=== PATIENT | female | born 1960 | race Caucasian/White ===

== ENCOUNTER 2021-07-17 10:50 | Inpatient (IN) ==
[2021-07-17 11:24] LABS: Basophils # 0.1 10*3/uL (0.0-0.2); Basophils % 0.9 % (0.0-0.8); Eosinophils # 0.6 10*3/uL (0.0-0.87); Eosinophils % 8.6 % (0.00-10.9); Hematocrit 26.4 VOL% (35.7-47.0); Immature Granulocytes % 0.3 %; Immature Granulocytes Absolute 0.02 #; Lymphocytes # 1.6 10*3/uL (1.4-4.0); Lymphocytes % 22.9 % (21.3-54.2); Mean Corpuscular HGB Conc 30.3 GM/DL (32-36); Mean Corpuscular Volume 94.3 FL (87-102); Mean Platelet Volume 10.8 FL (9.6-12.0); Monocytes % 9.9 % (1.7-12.7); Neutrophils % 57.4 % (38.7-73.9); Platelet Count 296 T/CUMM (130-400); Red Cell Distribution Width 15.1 % (9.3-17.3)
[2021-07-17 11:30] LABS: ABG Base Excess 2.1 MMOL/L (-2.5-2.5); ABG HCO3 26.2 MMOL/L (20-26); ABG Oxygen Saturation 91.7 % (95-100); ABG PCO2 42.7 MM HG (35-48); ABG PH 7.408 (7.35-7.45); ABG PO2 65.7 MM HG (80-95); ABG TCO2 25.2 MMOL/L (23-27)
[2021-07-17 12:02] LABS: Albumin 3.2 G/DL (3.4-5.0); Bilirubin,Total 0.5 MG/DL (0.20-1.00); Potassium 3.8 MMOL/L (3.5-5.1); Total Protein 7.7 G/DL (6.4-8.2)
[2021-07-17] MEDS ORDERED: PIPERACILLIN/TAZOBACTAM 3,375 MG in SODIUM CHLORIDE 0.9% 100 ML IV STA ×2 (12:11→13:05)
[2021-07-17] MEDS ORDERED: DEXTROSE 50% 25 GM/50 ML SYRINGE IV ONE (12:41)
[2021-07-17] MEDS ORDERED: DEXTROSE 50% 25 GM/50 ML VIAL IV STA (12:49)
[2021-07-17] MEDS ORDERED: BISACODYL 5 MG TABLET PO PRN (14:05)
[2021-07-17] MEDS ORDERED: ACETAMINOPHEN 325 MG TABLET PO PRN (14:05)
[2021-07-17] MEDS ORDERED: DEXTROSE 50% 25 GM/50 ML VIAL IV PRN (14:05)
[2021-07-17] MEDS ORDERED: guaiFENesin/DM ER 600-30 MG TABLET PO PRN (14:05)
[2021-07-17] MEDS ORDERED: ONDANSETRON 4 MG/2 ML VIAL IV PRN (14:05)
[2021-07-17] MEDS ORDERED: GLUCAGON 1 MG VIAL IM PRN (14:05)
[2021-07-17] MEDS ORDERED: FUROSEMIDE 40 MG/4 ML VIAL IV STA (14:07)
[2021-07-17] MEDS ORDERED: hydrALAZINE 20 MG/1 ML VIAL IV STA (14:13)
[2021-07-17] MEDS: INSULIN LISPRO 100 UNIT/ML SUBCUT SCH ×2 (16:19→21:03)
[2021-07-17] MEDS: ASPIRIN EC 81 MG TABLET PO SCH (16:40)
[2021-07-17] MEDS: VENLAFAXINE XR 37.5 MG CAPSULE PO SCH ×2 (16:42→21:03)
[2021-07-17] MEDS: GABAPENTIN 300 MG CAPSULE PO SCH ×2 (16:42→21:03)
[2021-07-17] MEDS: METOPROLOL SUCCINATE XL 25 MG TABLET PO SCH (16:42)
[2021-07-17] MEDS: LOSARTAN 50 MG TABLET PO SCH (16:42)
[2021-07-17] MEDS: levETIRAcetam 500 MG TABLET PO SCH ×2 (16:42→21:03)
[2021-07-17] MEDS ORDERED: INFLUENZA VIRUS VACCINE 0.5 ML SYRINGE IM ONE (18:28)
[2021-07-17] MEDS: PIPERACILLIN/TAZOBACTAM 3,375 MG in SODIUM CHLORIDE 0.9% 100 ML IV SCH (21:02)
[2021-07-17] MEDS: ATORVASTATIN 80 MG TABLET PO SCH (21:03)
[2021-07-17] MEDS: ENOXAPARIN 40 MG/0.4 ML SYRINGE SUBCUT SCH (21:03)
[2021-07-18] MEDS: PIPERACILLIN/TAZOBACTAM 3,375 MG in SODIUM CHLORIDE 0.9% 100 ML IV SCH ×3 (05:14→21:21)
[2021-07-18 05:37] LABS: Basophils # 0.1 10*3/uL (0.0-0.2); Basophils % 0.8 % (0.0-0.8); Eosinophils # 0.7 10*3/uL (0.0-0.87); Eosinophils % 11.8 % (0.00-10.9); Hematocrit 24.7 VOL% (35.7-47.0); Hemoglobin 7.4 GM/DL (12.0-16.0); Immature Granulocytes % 0.3 %; Immature Granulocytes Absolute 0.02 #; Lymphocytes # 2.1 10*3/uL (1.4-4.0); Lymphocytes % 34.8 % (21.3-54.2); Mean Corpuscular Volume 96.1 FL (87-102); Mean Platelet Volume 11.2 FL (9.6-12.0); Monocytes % 12.1 % (1.7-12.7); Neutrophils % 40.2 % (38.7-73.9); Platelet Count 273 T/CUMM (130-400); Red Blood Count 2.57 MC/CUMM (3.8-5.5); Red Cell Distribution Width 15.3 % (9.3-17.3)
[2021-07-18 06:06] LABS: Calcium 8.4 MG/DL (8.5-10.1); Osmolality,Calculated 282.8 MOS/KG (273-304); Potassium 3.4 MMOL/L (3.5-5.1)
[2021-07-18 06:35] LABS: Eosinophils 15 % (0-10); Lymphocytes 36 % (20-55); Platelet Estimate Normal; Segmented Neutrophils 39 % (50-85); Total Cells Counted 100
[2021-07-18 06:36] LABS: Anisocytosis 1+; Macrocytosis Slight
[2021-07-18] MEDS: INSULIN LISPRO 100 UNIT/ML SUBCUT SCH ×4 (07:48→21:26)
[2021-07-18] MEDS: METOPROLOL SUCCINATE XL 25 MG TABLET PO SCH (08:38)
[2021-07-18] MEDS: levETIRAcetam 500 MG TABLET PO SCH ×2 (08:38→21:21)
[2021-07-18] MEDS: LOSARTAN 50 MG TABLET PO SCH (08:38)
[2021-07-18] MEDS: GABAPENTIN 300 MG CAPSULE PO SCH ×3 (08:38→21:21)
[2021-07-18] MEDS: VENLAFAXINE XR 37.5 MG CAPSULE PO SCH ×2 (08:38→21:21)
[2021-07-18] MEDS: FUROSEMIDE 40 MG/4 ML VIAL IV SCH ×2 (08:39→16:05)
[2021-07-18] MEDS: ASPIRIN EC 81 MG TABLET PO SCH (08:39)
[2021-07-18] MEDS: ATORVASTATIN 80 MG TABLET PO SCH (21:21)
[2021-07-18] MEDS: ENOXAPARIN 40 MG/0.4 ML SYRINGE SUBCUT SCH (21:22)
[2021-07-19] MEDS: PIPERACILLIN/TAZOBACTAM 3,375 MG in SODIUM CHLORIDE 0.9% 100 ML IV SCH ×3 (05:46→21:24)
[2021-07-19] MEDS: GABAPENTIN 300 MG CAPSULE PO SCH ×3 (08:53→21:24)
[2021-07-19] MEDS: ASPIRIN EC 81 MG TABLET PO SCH (08:53)
[2021-07-19] MEDS: METOPROLOL SUCCINATE XL 25 MG TABLET PO SCH (08:53)
[2021-07-19] MEDS: LOSARTAN 50 MG TABLET PO SCH (08:53)
[2021-07-19] MEDS: levETIRAcetam 500 MG TABLET PO SCH ×2 (08:53→21:24)
[2021-07-19] MEDS: INSULIN LISPRO 100 UNIT/ML SUBCUT SCH ×4 (08:53→21:59)
[2021-07-19] MEDS: VENLAFAXINE XR 37.5 MG CAPSULE PO SCH ×2 (08:54→21:24)
[2021-07-19] MEDS: FUROSEMIDE 40 MG/4 ML VIAL IV SCH ×2 (08:54→16:17)
[2021-07-19] MEDS: ATORVASTATIN 80 MG TABLET PO SCH (21:24)
[2021-07-19] MEDS: ENOXAPARIN 40 MG/0.4 ML SYRINGE SUBCUT SCH (21:24)
[2021-07-20] MEDS: PIPERACILLIN/TAZOBACTAM 3,375 MG in SODIUM CHLORIDE 0.9% 100 ML IV SCH ×3 (05:47→20:41)
[2021-07-20 06:43] LABS: Basophils # 0.1 10*3/uL (0.0-0.2); Basophils % 0.8 % (0.0-0.8); Eosinophils % 14.6 % (0.00-10.9); Hematocrit 24.2 VOL% (35.7-47.0); Hemoglobin 7.3 GM/DL (12.0-16.0); Immature Granulocytes % 0.3 %; Immature Granulocytes Absolute 0.02 #; Lymphocytes # 1.6 10*3/uL (1.4-4.0); Lymphocytes % 24.4 % (21.3-54.2); Mean Corpuscular HGB Conc 30.2 GM/DL (32-36); Mean Corpuscular Volume 95.3 FL (87-102); Mean Platelet Volume 11.3 FL (9.6-12.0); Monocytes % 13.1 % (1.7-12.7); Neutrophils % 46.8 % (38.7-73.9); Platelet Count 258 T/CUMM (130-400); Red Blood Count 2.54 MC/CUMM (3.8-5.5); Red Cell Distribution Width 14.7 % (9.3-17.3); White Blood Count 6.6 T/CUMM (4-12)
[2021-07-20 07:03] LABS: Eosinophils 9 % (0-10); Lymphocytes 30 % (20-55); Platelet Estimate Normal; Segmented Neutrophils 53 % (50-85); Total Cells Counted 100
[2021-07-20 07:04] LABS: Anisocytosis 2+
[2021-07-20 07:06] LABS: Helmet Cells Few; Macrocytosis Slight; Poikilocytosis Slight
[2021-07-20 07:12] LABS: Calcium 8.1 MG/DL (8.5-10.1); Osmolality,Calculated 292.5 MOS/KG (273-304)
[2021-07-20 09:42] LABS: Lymphocytes,Pleural Fluid 94 %; Monocytes,Pleural Fluid 2 %; Neutrophils,Pleural Fluid 4 %
[2021-07-20] MEDS: INSULIN LISPRO 100 UNIT/ML SUBCUT SCH ×4 (09:48→20:42)
[2021-07-20 09:49] LABS: RBC,Pleural Fluid 72 T/CUMM
[2021-07-20] MEDS: LOSARTAN 50 MG TABLET PO SCH (09:49)
[2021-07-20] MEDS: GABAPENTIN 300 MG CAPSULE PO SCH ×3 (09:49→20:41)
[2021-07-20] MEDS: METOPROLOL SUCCINATE XL 25 MG TABLET PO SCH (09:49)
[2021-07-20] MEDS: VENLAFAXINE XR 37.5 MG CAPSULE PO SCH ×2 (09:49→20:41)
[2021-07-20] MEDS: ASPIRIN EC 81 MG TABLET PO SCH (09:49)
[2021-07-20] MEDS: levETIRAcetam 500 MG TABLET PO SCH ×2 (09:49→20:41)
[2021-07-20 09:50] LABS: Glucose,Pleural Fluid 327 MG/DL; LDH,Body Fluid 96 U/L; Total Protein,Body Fluid 2.2 G/DL
[2021-07-20] MEDS: FUROSEMIDE 40 MG/4 ML VIAL IV SCH ×2 (09:50→09:55)
[2021-07-20] MEDS ORDERED: INSULIN NPH 100 UNIT/ML SUBCUT SCH (17:00)
[2021-07-20] MEDS: ENOXAPARIN 40 MG/0.4 ML SYRINGE SUBCUT SCH (20:41)
[2021-07-20] MEDS: ATORVASTATIN 80 MG TABLET PO SCH (20:41)
[2021-07-21] MEDS: PIPERACILLIN/TAZOBACTAM 3,375 MG in SODIUM CHLORIDE 0.9% 100 ML IV SCH (05:03)
[2021-07-21 05:49] LABS: Basophils # 0.1 10*3/uL (0.0-0.2); Basophils % 0.7 % (0.0-0.8); Eosinophils # 0.9 10*3/uL (0.0-0.87); Hematocrit 23.7 VOL% (35.7-47.0); Hemoglobin 7.1 GM/DL (12.0-16.0); Immature Granulocytes % 0.1 %; Immature Granulocytes Absolute 0.01 #; Lymphocytes # 2.3 10*3/uL (1.4-4.0); Lymphocytes % 32.8 % (21.3-54.2); Mean Corpuscular Volume 95.2 FL (87-102); Mean Platelet Volume 11.9 FL (9.6-12.0); Monocytes % 11.7 % (1.7-12.7); Neutrophils % 41.7 % (38.7-73.9); Platelet Count 249 T/CUMM (130-400); Red Blood Count 2.49 MC/CUMM (3.8-5.5); Red Cell Distribution Width 14.6 % (9.3-17.3); White Blood Count 6.9 T/CUMM (4-12)
[2021-07-21 06:10] LABS: Calcium 8.1 MG/DL (8.5-10.1); Osmolality,Calculated 288.8 MOS/KG (273-304); Potassium 3.6 MMOL/L (3.5-5.1)
[2021-07-21 06:22] LABS: Eosinophils 11 % (0-10); Hypochromasia 1+; Lymphocytes 30 % (20-55); Segmented Neutrophils 51 % (50-85); Total Cells Counted 100
[2021-07-21 06:23] LABS: Macrocytosis Slight
[2021-07-21 06:24] LABS: Platelet Estimate Normal
[2021-07-21] MEDS ORDERED: INSULIN NPH 100 UNIT/ML SUBCUT SCH (08:00)
[2021-07-21] MEDS: INSULIN LISPRO 100 UNIT/ML SUBCUT SCH ×4 (08:08→22:57)
[2021-07-21] MEDS: VENLAFAXINE XR 37.5 MG CAPSULE PO SCH ×2 (09:04→21:00)
[2021-07-21] MEDS: METOPROLOL SUCCINATE XL 25 MG TABLET PO SCH (09:04)
[2021-07-21] MEDS: ASPIRIN EC 81 MG TABLET PO SCH (09:05)
[2021-07-21] MEDS: LOSARTAN 50 MG TABLET PO SCH (09:05)
[2021-07-21] MEDS: levETIRAcetam 500 MG TABLET PO SCH ×2 (09:06→21:00)
[2021-07-21] MEDS: GABAPENTIN 300 MG CAPSULE PO SCH ×3 (09:06→21:00)
[2021-07-21] MEDS: INSULIN NPH 100 UNIT/ML SUBCUT SCH ×2 (09:07→16:39)
[2021-07-21] MEDS: FUROSEMIDE 40 MG/4 ML VIAL IV SCH (09:10)
[2021-07-21] MEDS: ATORVASTATIN 80 MG TABLET PO SCH (21:00)
[2021-07-21] MEDS: ENOXAPARIN 40 MG/0.4 ML SYRINGE SUBCUT SCH (21:00)
[2021-07-22 05:40] LABS: Basophils # 0.1 10*3/uL (0.0-0.2); Basophils % 0.8 % (0.0-0.8); Eosinophils # 1.1 10*3/uL (0.0-0.87); Hematocrit 23.6 VOL% (35.7-47.0); Hemoglobin 7.3 GM/DL (12.0-16.0); Immature Granulocytes % 0.3 %; Immature Granulocytes Absolute 0.02 #; Lymphocytes # 2.2 10*3/uL (1.4-4.0); Lymphocytes % 27.5 % (21.3-54.2); Mean Corpuscular HGB Conc 30.9 GM/DL (32-36); Mean Corpuscular Volume 95.5 FL (87-102); Mean Platelet Volume 11.4 FL (9.6-12.0); Neutrophils % 45.4 % (38.7-73.9); Platelet Count 257 T/CUMM (130-400); Red Blood Count 2.47 MC/CUMM (3.8-5.5); Red Cell Distribution Width 14.5 % (9.3-17.3); White Blood Count 7.9 T/CUMM (4-12)
[2021-07-22 06:07] LABS: Eosinophils 15 % (0-10); Lymphocytes 22 % (20-55); Macrocytosis Slight; Platelet Estimate Normal; Segmented Neutrophils 56 % (50-85); Total Cells Counted 100
[2021-07-22 06:12] LABS: % Iron Saturation 12.9 % (18-50); Calcium 8.1 MG/DL (8.5-10.1); Ferritin 34.5 ng/mL (8-252); Osmolality,Calculated 292.7 MOS/KG (273-304); Potassium 3.7 MMOL/L (3.5-5.1)
[2021-07-22 06:26] LABS: Folate 5.93 NG/ML (5.38-24.0)
[2021-07-22] MEDS: INSULIN LISPRO 100 UNIT/ML SUBCUT SCH ×4 (08:33→22:10)
[2021-07-22] MEDS: METOPROLOL SUCCINATE XL 25 MG TABLET PO SCH (08:34)
[2021-07-22] MEDS: FUROSEMIDE 40 MG/4 ML VIAL IV SCH ×2 (08:34→10:09)
[2021-07-22] MEDS: INSULIN NPH 100 UNIT/ML SUBCUT SCH ×2 (08:34→16:21)
[2021-07-22] MEDS: levETIRAcetam 500 MG TABLET PO SCH ×2 (08:35→22:10)
[2021-07-22] MEDS: ASPIRIN EC 81 MG TABLET PO SCH (08:35)
[2021-07-22] MEDS: VENLAFAXINE XR 37.5 MG CAPSULE PO SCH ×2 (08:35→22:10)
[2021-07-22] MEDS: LOSARTAN 50 MG TABLET PO SCH (08:35)
[2021-07-22] MEDS: GABAPENTIN 300 MG CAPSULE PO SCH ×3 (08:35→22:10)
[2021-07-22] MEDS ORDERED: INSULIN NPH 100 UNIT/ML SUBCUT ONE (09:15)
[2021-07-22] MEDS: FERROUS SULFATE 325 MG TABLET PO SCH ×2 (09:29→16:21)
[2021-07-22] MEDS: ENOXAPARIN 40 MG/0.4 ML SYRINGE SUBCUT SCH (22:10)
[2021-07-22] MEDS: ATORVASTATIN 80 MG TABLET PO SCH (22:10)
[2021-07-23] MEDS: levETIRAcetam 500 MG TABLET PO SCH (08:48)
[2021-07-23] MEDS: METOPROLOL SUCCINATE XL 25 MG TABLET PO SCH (08:48)
[2021-07-23] MEDS: ASPIRIN EC 81 MG TABLET PO SCH (08:48)
[2021-07-23] MEDS: LOSARTAN 50 MG TABLET PO SCH (08:48)
[2021-07-23] MEDS: GABAPENTIN 300 MG CAPSULE PO SCH ×2 (08:48→16:18)
[2021-07-23] MEDS: VENLAFAXINE XR 37.5 MG CAPSULE PO SCH (08:48)
[2021-07-23] MEDS: FERROUS SULFATE 325 MG TABLET PO SCH (08:48)
[2021-07-23] MEDS: INSULIN LISPRO 100 UNIT/ML SUBCUT SCH ×3 (08:49→16:19)
[2021-07-23] MEDS: FUROSEMIDE 40 MG/4 ML VIAL IV SCH (08:49)
[2021-07-23] MEDS ORDERED: INSULIN NPH 100 UNIT/ML SUBCUT SCH (09:00)
[2021-07-23] MEDS: INSULIN NPH 100 UNIT/ML SUBCUT SCH (10:22)
[2021-07-23 13:07] VITALS: BP 143/58
== END 2021-07-23 16:56 | disposition home health service (06) | DRG 291 ==
LOC: EDBD → EDUNIT# → N.ED 10:50 → SUATTDRO 14:05 → N.EDINP 14:05 → N.3E 15:41
PROVIDERS: ADMIT Internal Medicine; ATTEND Internal Medicine

== ENCOUNTER 2021-07-26 09:24 | Inpatient (IN) ==
[2021-07-26] MEDS ORDERED: SODIUM CHLORIDE 0.9% 1,000 ML IV STA (09:48)
[2021-07-26 10:04] LABS: ABG Base Excess 3.4 MMOL/L (-2.5-2.5); ABG HCO3 27.5 MMOL/L (20-26); ABG Oxygen Saturation 97.8 % (95-100); ABG PCO2 41.9 MM HG (35-48); ABG PH 7.432 (7.35-7.45); ABG PO2 90.4 MM HG (80-95); ABG TCO2 26.4 MMOL/L (23-27); Allen Test Positive
[2021-07-26 10:14] LABS: Basophils # 0.1 10*3/uL (0.0-0.2); Basophils % 0.6 % (0.0-0.8); Eosinophils # 0.6 10*3/uL (0.0-0.87); Eosinophils % 7.8 % (0.00-10.9); Hematocrit 21.4 VOL% (35.7-47.0); Immature Granulocytes % 0.5 %; Immature Granulocytes Absolute 0.04 #; Lymphocytes # 1.7 10*3/uL (1.4-4.0); Lymphocytes % 21.3 % (21.3-54.2); Mean Corpuscular HGB Conc 29.9 GM/DL (32-36); Mean Corpuscular Volume 94.7 FL (87-102); Mean Platelet Volume 11.2 FL (9.6-12.0); Monocytes % 10.5 % (1.7-12.7); Neutrophils % 59.3 % (38.7-73.9); Platelet Count 302 T/CUMM (130-400); Red Blood Count 2.26 MC/CUMM (3.8-5.5); Red Cell Distribution Width 14.8 % (9.3-17.3); White Blood Count 7.7 T/CUMM (4-12)
[2021-07-26 10:16] LABS: Hemoglobin 6.4 GM/DL (12.0-16.0)
[2021-07-26 10:40] LABS: Alanine Aminotransferase 20 U/L (13-56); Albumin 2.6 G/DL (3.4-5.0); Alkaline Phosphatase 76 U/L (45-117); Aspartate Amino Transferase 17 U/L (0-37); Bilirubin,Total < 0.39 MG/DL (0.20-1.00); Blood Urea Nitrogen 15 MG/DL (7-18); Calcium 8.7 MG/DL (8.5-10.1); Carbon Dioxide 28 MMOL/L (21-32); Estimated Glom Filtration Rate 63 ML/MIN; Glucose 176 MG/DL (74-106); Osmolality,Calculated 287.1 MOS/KG (273-304); Potassium 3.5 MMOL/L (3.5-5.1); Sodium 142 MMOL/L (136-145); Total Protein 6.2 G/DL (6.4-8.2)
[2021-07-26 10:41] LABS: Bilirubin,Urine Negative (Negative); Blood, Urine Negative (Negative); Glucose,Urine (UA) 150 mg/dL (Negative); Ketones,Urine 20 mg/dL (Negative); Mucus,Urine Occasional /LPF (Occasional); Nitrite,Urine Negative (Negative); Protein,Urine >=500 MG/DL; RBC,Urine <1 /HPF (0-4); Squamous Epithelial Cell,Urine Occasional /HPF (0-10); Urine Appearance CLEAR (Clear); Urine Color Yellow (Yellow); Urine Specific Gravity 1.015 (1.001-1.035); Urine Urobilinogen < 2.0 EU/DL (0.2-1.0)
[2021-07-26] MEDS ORDERED: ACETAMINOPHEN 325 MG TABLET PO PRN (12:12)
[2021-07-26] MEDS ORDERED: ONDANSETRON 4 MG/2 ML VIAL IV PRN (12:12)
[2021-07-26] MEDS ORDERED: DEXTROSE 50% 25 GM/50 ML VIAL IV PRN (12:12)
[2021-07-26] MEDS ORDERED: GLUCAGON 1 MG VIAL IM PRN (12:12)
[2021-07-26] MEDS ORDERED: hydrALAZINE 20 MG/1 ML VIAL IV PRN (12:12)
[2021-07-26] MEDS ORDERED: FUROSEMIDE 40 MG TABLET PO PRN (12:21)
[2021-07-26 12:42] LABS: Thyroid Stimulating Hormone 3.49 uIU/ml (0.358-3.74)
[2021-07-26] MEDS: METOPROLOL SUCCINATE XL 25 MG TABLET PO SCH (12:59)
[2021-07-26] MEDS: LOSARTAN 50 MG TABLET PO SCH (12:59)
[2021-07-26] MEDS ORDERED: SODIUM CHLORIDE 0.9% 1,000 ML IV PRN (14:58)
[2021-07-26] MEDS: GABAPENTIN 300 MG CAPSULE PO SCH ×2 (16:08→20:48)
[2021-07-26] MEDS: FUROSEMIDE 40 MG TABLET PO SCH (16:08)
[2021-07-26] MEDS: INSULIN LISPRO 100 UNIT/ML SUBCUT SCH ×2 (16:43→20:49)
[2021-07-26] MEDS: ATORVASTATIN 80 MG TABLET PO SCH (20:48)
[2021-07-26] MEDS: levETIRAcetam 500 MG TABLET PO SCH (20:48)
[2021-07-26] MEDS: PANTOPRAZOLE 40 MG TABLET PO SCH (20:49)
[2021-07-27 05:38] LABS: Basophils # 0.1 10*3/uL (0.0-0.2); Basophils % 0.7 % (0.0-0.8); Eosinophils # 0.6 10*3/uL (0.0-0.87); Eosinophils % 8.3 % (0.00-10.9); Hematocrit 29.9 VOL% (35.7-47.0); Immature Granulocytes % 0.5 %; Immature Granulocytes Absolute 0.04 #; Lymphocytes # 2.2 10*3/uL (1.4-4.0); Lymphocytes % 29.4 % (21.3-54.2); Mean Corpuscular HGB Conc 30.1 GM/DL (32-36); Mean Corpuscular Volume 94.3 FL (87-102); Mean Platelet Volume 11.6 FL (9.6-12.0); Monocytes % 11.8 % (1.7-12.7); Neutrophils % 49.3 % (38.7-73.9); Platelet Count 311 T/CUMM (130-400); Red Blood Count 3.17 MC/CUMM (3.8-5.5); Red Cell Distribution Width 16.8 % (9.3-17.3); White Blood Count 7.4 T/CUMM (4-12)
[2021-07-27 05:55] LABS: Calcium 8.4 MG/DL (8.5-10.1); Osmolality,Calculated 288.3 MOS/KG (273-304); Potassium 3.6 MMOL/L (3.5-5.1)
[2021-07-27] MEDS: INSULIN LISPRO 100 UNIT/ML SUBCUT SCH ×4 (09:59→21:16)
[2021-07-27] MEDS: levETIRAcetam 500 MG TABLET PO SCH ×2 (10:01→21:16)
[2021-07-27] MEDS: PANTOPRAZOLE 40 MG TABLET PO SCH ×2 (10:01→21:16)
[2021-07-27] MEDS: METOPROLOL SUCCINATE XL 25 MG TABLET PO SCH (10:01)
[2021-07-27] MEDS: VENLAFAXINE XR 75 MG CAPSULE PO SCH (10:01)
[2021-07-27] MEDS: GABAPENTIN 300 MG CAPSULE PO SCH ×3 (10:01→21:16)
[2021-07-27] MEDS: LOSARTAN 50 MG TABLET PO SCH (10:02)
[2021-07-27] MEDS: FUROSEMIDE 40 MG TABLET PO SCH (10:17)
[2021-07-27] MEDS: INSULIN NPH 100 UNIT/ML SUBCUT SCH (10:32)
[2021-07-27 13:21] LABS: Hematocrit 28.4 VOL% (35.7-47.0)
[2021-07-27] MEDS: CYANOCOBALAMIN 100 MCG TABLET PO SCH (14:28)
[2021-07-27] MEDS: FUROSEMIDE 40 MG/4 ML VIAL IV SCH (17:28)
[2021-07-27 19:29] LABS: Hematocrit 29.4 VOL% (35.7-47.0); Hemoglobin 9.3 GM/DL (12.0-16.0)
[2021-07-27] MEDS: ATORVASTATIN 80 MG TABLET PO SCH (21:16)
[2021-07-28 05:41] LABS: Basophils # 0.1 10*3/uL (0.0-0.2); Basophils % 0.6 % (0.0-0.8); Eosinophils # 0.7 10*3/uL (0.0-0.87); Eosinophils % 8.2 % (0.00-10.9); Hematocrit 26.9 VOL% (35.7-47.0); Hemoglobin 8.2 GM/DL (12.0-16.0); Immature Granulocytes % 0.5 %; Immature Granulocytes Absolute 0.04 #; Lymphocytes # 2.1 10*3/uL (1.4-4.0); Lymphocytes % 24.8 % (21.3-54.2); Mean Corpuscular HGB Conc 30.5 GM/DL (32-36); Mean Corpuscular Volume 94.1 FL (87-102); Mean Platelet Volume 11.7 FL (9.6-12.0); Monocytes % 10.8 % (1.7-12.7); Neutrophils % 55.1 % (38.7-73.9); Platelet Count 273 T/CUMM (130-400); Red Blood Count 2.86 MC/CUMM (3.8-5.5); Red Cell Distribution Width 16.4 % (9.3-17.3); White Blood Count 8.3 T/CUMM (4-12)
[2021-07-28] MEDS: LACTATED RINGERS 1,000 ML IV SCH (07:35)
[2021-07-28] MEDS ORDERED: GLUCAGON 1 MG VIAL IM PRN (07:42)
[2021-07-28] MEDS ORDERED: DEXTROSE 50% 25 GM/50 ML VIAL IV PRN (07:42)
[2021-07-28] MEDS ORDERED: LIDOCAINE 2% 5 ML VIAL ONE (09:12)
[2021-07-28] MEDS ORDERED: propofoL 200 MG/20 ML VIAL IV ONE ×2 (09:12→09:18)
[2021-07-28] MEDS: INSULIN LISPRO 100 UNIT/ML SUBCUT SCH ×4 (11:48→21:31)
[2021-07-28] MEDS: LOSARTAN 50 MG TABLET PO SCH (11:53)
[2021-07-28] MEDS: VENLAFAXINE XR 75 MG CAPSULE PO SCH (11:53)
[2021-07-28] MEDS: GABAPENTIN 300 MG CAPSULE PO SCH ×3 (11:54→21:31)
[2021-07-28] MEDS: CYANOCOBALAMIN 100 MCG TABLET PO SCH (11:54)
[2021-07-28] MEDS: FUROSEMIDE 40 MG/4 ML VIAL IV SCH ×2 (11:55→18:27)
[2021-07-28] MEDS: PANTOPRAZOLE 40 MG TABLET PO SCH ×2 (11:55→21:31)
[2021-07-28] MEDS: METOPROLOL SUCCINATE XL 25 MG TABLET PO SCH (11:55)
[2021-07-28] MEDS ORDERED: BISACODYL 5 MG TABLET PO ONE (12:00)
[2021-07-28] MEDS: levETIRAcetam 500 MG TABLET PO SCH ×2 (12:10→21:31)
[2021-07-28] MEDS: INSULIN NPH 100 UNIT/ML SUBCUT SCH (12:10)
[2021-07-28] MEDS ORDERED: POLYETHYLENE GLYCOL POWDER 255 GM BOTTLE PO ONE (18:00)
[2021-07-28] MEDS ORDERED: MAGNESIUM CITRATE 300 ML BOTTLE PO ONE (21:00)
[2021-07-28] MEDS: ATORVASTATIN 80 MG TABLET PO SCH (21:31)
[2021-07-29 07:12] LABS: Basophils # 0.1 10*3/uL (0.0-0.2); Basophils % 0.7 % (0.0-0.8); Eosinophils # 0.8 10*3/uL (0.0-0.87); Eosinophils % 9.9 % (0.00-10.9); Hematocrit 31.2 VOL% (35.7-47.0); Hemoglobin 9.6 GM/DL (12.0-16.0); Immature Granulocytes % 0.2 %; Immature Granulocytes Absolute 0.02 #; Lymphocytes # 1.5 10*3/uL (1.4-4.0); Lymphocytes % 18.3 % (21.3-54.2); Mean Corpuscular HGB Conc 30.8 GM/DL (32-36); Mean Corpuscular Volume 93.1 FL (87-102); Mean Platelet Volume 11.1 FL (9.6-12.0); Monocytes % 11.1 % (1.7-12.7); Neutrophils % 59.8 % (38.7-73.9); Platelet Count 354 T/CUMM (130-400); Red Blood Count 3.35 MC/CUMM (3.8-5.5); Red Cell Distribution Width 15.9 % (9.3-17.3); White Blood Count 8.1 T/CUMM (4-12)
[2021-07-29 07:22] LABS: PT Patient Result 10.7 SECS (10.5-12.0)
[2021-07-29] MEDS: LACTATED RINGERS 1,000 ML IV SCH ×2 (08:40→08:59)
[2021-07-29] MEDS: INSULIN LISPRO 100 UNIT/ML SUBCUT SCH ×4 (08:54→21:04)
[2021-07-29] MEDS ORDERED: LIDOCAINE 2% 5 ML VIAL ONE (09:12)
[2021-07-29] MEDS ORDERED: propofoL 200 MG/20 ML VIAL IV ONE (09:12)
[2021-07-29 09:19] LABS: Calcium 9.1 MG/DL (8.5-10.1); Osmolality,Calculated 292.6 MOS/KG (273-304); Potassium 3.4 MMOL/L (3.5-5.1)
[2021-07-29] MEDS ORDERED: DEXTROSE 50% 25 GM/50 ML VIAL IV PRN ×2 (09:58→10:05)
[2021-07-29] MEDS ORDERED: GLUCAGON 1 MG VIAL IM PRN ×2 (09:58→10:05)
[2021-07-29] MEDS: GABAPENTIN 300 MG CAPSULE PO SCH ×3 (11:29→21:03)
[2021-07-29] MEDS: PANTOPRAZOLE 40 MG TABLET PO SCH ×2 (11:29→21:04)
[2021-07-29] MEDS: CYANOCOBALAMIN 100 MCG TABLET PO SCH (11:29)
[2021-07-29] MEDS: levETIRAcetam 500 MG TABLET PO SCH ×2 (11:29→21:04)
[2021-07-29] MEDS: VENLAFAXINE XR 75 MG CAPSULE PO SCH (11:29)
[2021-07-29] MEDS: LOSARTAN 50 MG TABLET PO SCH (11:29)
[2021-07-29] MEDS ORDERED: POTASSIUM CHLORIDE 20 MEQ TABLET PO ONE (11:31)
[2021-07-29] MEDS: FUROSEMIDE 40 MG/4 ML VIAL IV SCH (11:33)
[2021-07-29] MEDS: METOPROLOL SUCCINATE XL 25 MG TABLET PO SCH (11:44)
[2021-07-29] MEDS: INSULIN NPH 100 UNIT/ML SUBCUT SCH (12:22)
[2021-07-29] MEDS: ATORVASTATIN 80 MG TABLET PO SCH (21:04)
[2021-07-30 04:27] LABS: Basophils % 0.4 % (0.0-0.8); Eosinophils # 0.7 10*3/uL (0.0-0.87); Eosinophils % 8.1 % (0.00-10.9); Hematocrit 27.8 VOL% (35.7-47.0); Hemoglobin 8.5 GM/DL (12.0-16.0); Immature Granulocytes % 0.4 %; Immature Granulocytes Absolute 0.03 #; Lymphocytes # 2.4 10*3/uL (1.4-4.0); Lymphocytes % 29.6 % (21.3-54.2); Mean Corpuscular HGB Conc 30.6 GM/DL (32-36); Mean Corpuscular Volume 91.7 FL (87-102); Mean Platelet Volume 11.4 FL (9.6-12.0); Monocytes % 12.8 % (1.7-12.7); Neutrophils % 48.7 % (38.7-73.9); Platelet Count 307 T/CUMM (130-400); Red Blood Count 3.03 MC/CUMM (3.8-5.5); Red Cell Distribution Width 15.6 % (9.3-17.3)
[2021-07-30 04:52] LABS: Osmolality,Calculated 284.5 MOS/KG (273-304); Potassium 3.8 MMOL/L (3.5-5.1)
[2021-07-30] MEDS: LACTATED RINGERS 1,000 ML IV SCH ×2 (08:30)
[2021-07-30] MEDS ORDERED: FUROSEMIDE 40 MG TABLET PO SCH (09:00)
[2021-07-30] MEDS: VENLAFAXINE XR 75 MG CAPSULE PO SCH (09:58)
[2021-07-30] MEDS: METOPROLOL SUCCINATE XL 25 MG TABLET PO SCH (09:58)
[2021-07-30] MEDS: PANTOPRAZOLE 40 MG TABLET PO SCH (09:59)
[2021-07-30] MEDS: levETIRAcetam 500 MG TABLET PO SCH (09:59)
[2021-07-30] MEDS: GABAPENTIN 300 MG CAPSULE PO SCH (09:59)
[2021-07-30] MEDS: INSULIN NPH 100 UNIT/ML SUBCUT SCH (10:00)
[2021-07-30] MEDS: INSULIN LISPRO 100 UNIT/ML SUBCUT SCH ×2 (10:01→12:59)
[2021-07-30] MEDS: CYANOCOBALAMIN 100 MCG TABLET PO SCH (10:34)
[2021-07-30 12:31] VITALS: BP 138/82
== END 2021-07-30 14:22 | disposition home health service (06) | DRG 377 ==
LOC: EDUNIT# → EDBD → N.EDINP 09:24 → N.ED 09:24 → N.EDINP 15:06 → N.TELES 15:12 → SUATTDRO 07-27 08:12
PROVIDERS: ADMIT Internal Medicine; ATTEND Internal Medicine

== ENCOUNTER 2021-10-10 17:20 | Inpatient (IN) ==
[2021-10-10] MEDS ORDERED: SODIUM CHLORIDE 0.9% 2,000 ML IV STA (17:52)
[2021-10-10] MEDS ORDERED: ONDANSETRON 4 MG/2 ML VIAL ONE (19:19)
[2021-10-10] MEDS ORDERED: LABETALOL 20 MG/4 ML SYRINGE IV STA (19:30)
[2021-10-10] MEDS ORDERED: ACETAMINOPHEN 650 MG SUPP RECTAL STA (19:30)
[2021-10-10] MEDS ORDERED: ONDANSETRON 4 MG/2 ML VIAL IV STA (19:30)
[2021-10-10 20:37] LABS: Basophils % 0.2 % (0.0-0.8); Eosinophils % 0.1 % (0.00-10.9); Hematocrit 31.3 VOL% (35.7-47.0); Hemoglobin 10.2 GM/DL (12.0-16.0); Immature Granulocytes % 0.2 %; Immature Granulocytes Absolute 0.03 #; Lymphocytes # 0.7 10*3/uL (1.4-4.0); Lymphocytes % 4.9 % (21.3-54.2); Mean Corpuscular HGB Conc 32.6 GM/DL (32-36); Mean Corpuscular Volume 83.5 FL (87-102); Mean Platelet Volume 11.6 FL (9.6-12.0); Monocytes % 5.1 % (1.7-12.7); Neutrophils % 89.5 % (38.7-73.9); Platelet Count 273 T/CUMM (130-400); Red Blood Count 3.75 MC/CUMM (3.8-5.5); White Blood Count 13.4 T/CUMM (4-12)
[2021-10-10 20:49] LABS: PT Patient Result 11.2 SECS (10.5-12.0); Partial Thromboplastin Time 21.9 SECS (23.8-32.1)
[2021-10-10 20:56] LABS: Alanine Aminotransferase 20 U/L (13-56); Albumin 2.7 G/DL (3.4-5.0); Alkaline Phosphatase 106 U/L (45-117); Aspartate Amino Transferase 32 U/L (0-37); Bilirubin,Total < 0.39 MG/DL (0.20-1.00); Blood Urea Nitrogen 31 MG/DL (7-18); Calcium 8.4 MG/DL (8.5-10.1); Carbon Dioxide 23 MMOL/L (21-32); Estimated Glom Filtration Rate 30 ML/MIN; Glucose 431 MG/DL (74-106); Osmolality,Calculated 301.5 MOS/KG (273-304); Potassium 4.2 MMOL/L (3.5-5.1); Sodium 139 MMOL/L (136-145); Total Protein 6.9 G/DL (6.4-8.2)
[2021-10-10] MEDS ORDERED: INSULIN REGULAR 100 UNIT/ML IV STA (21:03)
[2021-10-10 21:08] LABS: ABG Base Excess -1.1 MMOL/L (-2.5-2.5); ABG HCO3 23.5 MMOL/L (20-26); ABG Oxygen Saturation 98.8 % (95-100); ABG PCO2 36.5 MM HG (35-48); ABG TCO2 21.1 MMOL/L (23-27)
[2021-10-10 21:21] LABS: Bilirubin,Urine Negative (Negative); Blood, Urine Moderate mg/dL (Negative); Glucose,Urine (UA) >=500 mg/dL (Negative); Ketones,Urine 20 mg/dL (Negative); Mucus,Urine Occasional /LPF (Occasional); Nitrite,Urine Negative (Negative); Protein,Urine >=500 MG/DL; RBC,Urine 1 /HPF (0-4); Urine Appearance CLEAR (Clear); Urine Color Straw (Yellow); Urine Specific Gravity 1.021 (1.001-1.035); Urine Urobilinogen < 2.0 EU/DL (<2.0)
[2021-10-10] MEDS ORDERED: PIPERACILLIN/TAZOBACTAM 3,375 MG in SODIUM CHLORIDE 0.9% 100 ML IV STA (21:46)
[2021-10-10 21:48] LABS: Lymphocytes 8 % (20-55); Platelet Estimate Normal; Segmented Neutrophils 89 % (50-85); Total Cells Counted 100
[2021-10-10 21:49] LABS: Hypochromia Slight; Microcytosis 1+
[2021-10-10] MEDS ORDERED: cefTRIAXone 2,000 MG in SODIUM CHLORIDE 0.9% 100 ML IV ONE (21:55)
[2021-10-10] MEDS ORDERED: GLUCAGON 1 MG VIAL IM PRN ×3 (22:00)
[2021-10-10] MEDS ORDERED: ACETAMINOPHEN 325 MG TABLET PO PRN (22:00)
[2021-10-10] MEDS ORDERED: diphenhydrAMINE CAP 25 MG CAPSULE PO PRN (22:00)
[2021-10-10] MEDS ORDERED: hydrALAZINE 20 MG/1 ML VIAL IV PRN (22:00)
[2021-10-10] MEDS ORDERED: NICOTINE 21 MG/24 HR PATCH TRANSDERM PRN (22:00)
[2021-10-10] MEDS ORDERED: DEXTROSE 50% 25 GM/50 ML VIAL IV PRN ×2 (22:00)
[2021-10-10] MEDS ORDERED: DEXTROSE 10% 250 ML BAG IV PRN (22:52)
[2021-10-10] MEDS: SODIUM CHLORIDE 0.9% 1,000 ML IV SCH (23:30)
[2021-10-11] MEDS ORDERED: VANCOMYCIN INJ 1,500 MG in SODIUM CHLORIDE 0.9% 500 ML IV ONE
[2021-10-11] MEDS: HEPARIN 5,000 UNIT/1 ML VIAL SUBCUT SCH ×3 (01:40→21:19)
[2021-10-11] MEDS: INSULIN LISPRO 100 UNIT/ML SUBCUT SCH ×7 (01:40→22:07)
[2021-10-11] MEDS: AMPICILLIN INJ 2,000 MG in SODIUM CHLORIDE 0.9% 100 ML IV SCH ×3 (01:45→13:48)
[2021-10-11] MEDS: INSULIN GLARGINE 100 UNIT/ML SUBCUT SCH ×2 (02:15→21:19)
[2021-10-11] MEDS: ACETAMINOPHEN 650 MG SUPP RECTAL PRN ×3 (02:16→13:50)
[2021-10-11 04:59] LABS: Basophils % 0.2 % (0.0-0.8); Hematocrit 30.4 VOL% (35.7-47.0); Hemoglobin 9.7 GM/DL (12.0-16.0); Immature Granulocytes % 0.7 %; Immature Granulocytes Absolute 0.11 #; Lymphocytes # 1.8 10*3/uL (1.4-4.0); Lymphocytes % 10.9 % (21.3-54.2); Mean Corpuscular HGB Conc 31.9 GM/DL (32-36); Mean Corpuscular Volume 85.6 FL (87-102); Mean Platelet Volume 11.7 FL (9.6-12.0); Monocytes % 7.7 % (1.7-12.7); Neutrophils % 80.5 % (38.7-73.9); Platelet Count 246 T/CUMM (130-400); Red Blood Count 3.55 MC/CUMM (3.8-5.5); Red Cell Distribution Width 14.6 % (9.3-17.3); White Blood Count 16.4 T/CUMM (4-12)
[2021-10-11 05:24] LABS: VLDL Cholesterol 17.4 MG/DL
[2021-10-11 05:25] LABS: Calcium 8.1 MG/DL (8.5-10.1); Osmolality,Calculated 301.8 MOS/KG (273-304)
[2021-10-11] MEDS ORDERED: metroNIDAZOLE INJ 500 MG/100 ML PREMIX IV SCH (08:00)
[2021-10-11] MEDS ORDERED: ACYCLOVIR INJ 500 MG in SODIUM CHLORIDE 0.9% 100 ML IV SCH ×2 (08:00→21:00)
[2021-10-11] MEDS: ALBUTEROL/IPRATROPIUM 3 ML NEB RESP TX SCH ×5 (08:14→19:40)
[2021-10-11] MEDS: ASPIRIN 300 MG SUPP RECTAL SCH (09:15)
[2021-10-11] MEDS: PANTOPRAZOLE 40 MG TABLET PO SCH (09:19)
[2021-10-11 13:11] LABS: Barbiturates Screen,Urine Negative (Negative); Benzodiazepines Screen,Urine Negative (Negative); Cannabinoid Screen,Urine Negative (Negative); Opiate Screen,Urine Negative (Negative); Phencyclidine Screen,Urine Negative (Negative)
[2021-10-11] MEDS: SODIUM CHLORIDE 0.9% 1,000 ML IV SCH (14:07)
[2021-10-11] MEDS: ONDANSETRON 4 MG/2 ML VIAL IV PRN (14:47)
[2021-10-11] MEDS: PIPERACILLIN/TAZOBACTAM 3,375 MG in SODIUM CHLORIDE 0.9% 100 ML IV SCH (16:28)
[2021-10-12] MEDS ORDERED: VANCOMYCIN INJ 1,000 MG in SODIUM CHLORIDE 0.9% 250 ML IV SCH
[2021-10-12] MEDS: INSULIN LISPRO 100 UNIT/ML SUBCUT SCH ×6 (01:24→22:06)
[2021-10-12] MEDS: ALBUTEROL/IPRATROPIUM 3 ML NEB RESP TX SCH ×5 (01:34→19:49)
[2021-10-12] MEDS: SODIUM CHLORIDE 0.9% 1,000 ML IV SCH (04:09)
[2021-10-12] MEDS: PIPERACILLIN/TAZOBACTAM 3,375 MG in SODIUM CHLORIDE 0.9% 100 ML IV SCH ×2 (05:20→16:51)
[2021-10-12 06:07] LABS: Basophils # 0.1 10*3/uL (0.0-0.2); Basophils % 0.3 % (0.0-0.8); Eosinophils % 0.1 % (0.00-10.9); Hematocrit 28.6 VOL% (35.7-47.0); Hemoglobin 9.1 GM/DL (12.0-16.0); Immature Granulocytes % 0.6 %; Immature Granulocytes Absolute 0.09 #; Lymphocytes # 2.7 10*3/uL (1.4-4.0); Mean Corpuscular HGB Conc 31.8 GM/DL (32-36); Mean Corpuscular Volume 86.4 FL (87-102); Mean Platelet Volume 11.9 FL (9.6-12.0); Monocytes % 9.4 % (1.7-12.7); Neutrophils % 72.6 % (38.7-73.9); Platelet Count 191 T/CUMM (130-400); Red Blood Count 3.31 MC/CUMM (3.8-5.5); Red Cell Distribution Width 15.7 % (9.3-17.3)
[2021-10-12 06:31] LABS: Calcium 7.8 MG/DL (8.5-10.1); Osmolality,Calculated 304.4 MOS/KG (273-304); Potassium 3.8 MMOL/L (3.5-5.1)
[2021-10-12] MEDS: HEPARIN 5,000 UNIT/1 ML VIAL SUBCUT SCH ×2 (09:17→22:05)
[2021-10-12] MEDS: PANTOPRAZOLE 40 MG TABLET PO SCH (09:18)
[2021-10-12] MEDS: ASPIRIN 300 MG SUPP RECTAL SCH (09:23)
[2021-10-12] MEDS: SODIUM BICARB INJ 50 MEQ in DEXTROSE 5% NACL 0.45% 1,000 ML IV SCH (09:27)
[2021-10-12] MEDS: ROSUVASTATIN 20 MG TABLET PO SCH (22:04)
[2021-10-12] MEDS: INSULIN GLARGINE 100 UNIT/ML SUBCUT SCH (22:06)
[2021-10-13] MEDS: ALBUTEROL/IPRATROPIUM 3 ML NEB RESP TX SCH ×4 (01:22→20:45)
[2021-10-13] MEDS: INSULIN LISPRO 100 UNIT/ML SUBCUT SCH ×6 (02:08→21:36)
[2021-10-13] MEDS: SODIUM BICARB INJ 50 MEQ in DEXTROSE 5% NACL 0.45% 1,000 ML IV SCH ×2 (02:08→15:32)
[2021-10-13] MEDS: PIPERACILLIN/TAZOBACTAM 3,375 MG in SODIUM CHLORIDE 0.9% 100 ML IV SCH ×2 (02:40→16:52)
[2021-10-13 05:20] LABS: Basophils # 0.1 10*3/uL (0.0-0.2); Basophils % 0.4 % (0.0-0.8); Eosinophils # 0.4 10*3/uL (0.0-0.87); Eosinophils % 3.2 % (0.00-10.9); Immature Granulocytes % 0.5 %; Immature Granulocytes Absolute 0.07 #; Lymphocytes # 2.3 10*3/uL (1.4-4.0); Mean Corpuscular Volume 87.1 FL (87-102); Mean Platelet Volume 11.5 FL (9.6-12.0); Neutrophils % 69.9 % (38.7-73.9); Platelet Count 177 T/CUMM (130-400); Red Blood Count 3.33 MC/CUMM (3.8-5.5); Red Cell Distribution Width 15.7 % (9.3-17.3)
[2021-10-13 05:34] LABS: Potassium 3.1 MMOL/L (3.5-5.1)
[2021-10-13] MEDS: PANTOPRAZOLE 40 MG TABLET PO SCH (09:32)
[2021-10-13] MEDS: ASPIRIN EC 325 MG TABLET PO SCH (09:32)
[2021-10-13] MEDS: HEPARIN 5,000 UNIT/1 ML VIAL SUBCUT SCH ×2 (09:32→21:37)
[2021-10-13] MEDS: POTASSIUM BICARB EFFERVESCENT 20 MEQ TAB.EFF PO SCH ×2 (13:01→21:37)
[2021-10-13] MEDS: ROSUVASTATIN 20 MG TABLET PO SCH (21:34)
[2021-10-13] MEDS: levETIRAcetam 500 MG TABLET PO SCH (21:34)
[2021-10-13] MEDS: INSULIN GLARGINE 100 UNIT/ML SUBCUT SCH (21:36)
[2021-10-14] MEDS: ALBUTEROL/IPRATROPIUM 3 ML NEB RESP TX SCH ×4 (01:36→19:40)
[2021-10-14] MEDS: INSULIN LISPRO 100 UNIT/ML SUBCUT SCH ×6 (01:58→21:40)
[2021-10-14] MEDS: PIPERACILLIN/TAZOBACTAM 3,375 MG in SODIUM CHLORIDE 0.9% 100 ML IV SCH ×2 (04:06→16:25)
[2021-10-14] MEDS: SODIUM BICARB INJ 50 MEQ in DEXTROSE 5% NACL 0.45% 1,000 ML IV SCH ×2 (05:30→18:28)
[2021-10-14 06:39] LABS: Basophils % 0.2 % (0.0-0.8); Eosinophils # 0.4 10*3/uL (0.0-0.87); Eosinophils % 4.7 % (0.00-10.9); Hematocrit 24.8 VOL% (35.7-47.0); Hemoglobin 7.9 GM/DL (12.0-16.0); Immature Granulocytes % 0.4 %; Immature Granulocytes Absolute 0.03 #; Lymphocytes # 1.4 10*3/uL (1.4-4.0); Lymphocytes % 16.9 % (21.3-54.2); Mean Corpuscular HGB Conc 31.9 GM/DL (32-36); Mean Corpuscular Volume 85.2 FL (87-102); Mean Platelet Volume 12.3 FL (9.6-12.0); Monocytes % 9.7 % (1.7-12.7); Neutrophils % 68.1 % (38.7-73.9); Platelet Count 157 T/CUMM (130-400); Red Blood Count 2.91 MC/CUMM (3.8-5.5); Red Cell Distribution Width 15.9 % (9.3-17.3); White Blood Count 8.5 T/CUMM (4-12)
[2021-10-14 07:01] LABS: Calcium 7.7 MG/DL (8.5-10.1); Osmolality,Calculated 289.8 MOS/KG (273-304); Potassium 3.4 MMOL/L (3.5-5.1)
[2021-10-14] MEDS: levETIRAcetam 500 MG TABLET PO SCH ×2 (09:57→21:39)
[2021-10-14] MEDS: POTASSIUM BICARB EFFERVESCENT 20 MEQ TAB.EFF PO SCH ×2 (09:57→21:39)
[2021-10-14] MEDS: ASPIRIN EC 325 MG TABLET PO SCH (09:58)
[2021-10-14] MEDS: PANTOPRAZOLE 40 MG TABLET PO SCH (09:58)
[2021-10-14] MEDS: carvediloL 12.5 MG TABLET PO SCH ×2 (09:58→21:39)
[2021-10-14] MEDS: HEPARIN 5,000 UNIT/1 ML VIAL SUBCUT SCH ×2 (10:00→22:23)
[2021-10-14] MEDS: INSULIN GLARGINE 100 UNIT/ML SUBCUT SCH (21:40)
[2021-10-14] MEDS: ATORVASTATIN 80 MG TABLET PO SCH (21:42)
[2021-10-14] MEDS: ZALEPLON 5 MG CAPSULE PO PRN (21:44)
[2021-10-15] MEDS: ALBUTEROL/IPRATROPIUM 3 ML NEB RESP TX SCH ×4 (00:35→19:23)
[2021-10-15] MEDS: PIPERACILLIN/TAZOBACTAM 3,375 MG in SODIUM CHLORIDE 0.9% 100 ML IV SCH ×2 (04:43→22:04)
[2021-10-15 05:41] LABS: Basophils % 0.5 % (0.0-0.8); Eosinophils # 0.6 10*3/uL (0.0-0.87); Eosinophils % 7.5 % (0.00-10.9); Hematocrit 24.5 VOL% (35.7-47.0); Hemoglobin 7.7 GM/DL (12.0-16.0); Immature Granulocytes % 0.4 %; Immature Granulocytes Absolute 0.03 #; Lymphocytes # 1.4 10*3/uL (1.4-4.0); Lymphocytes % 17.1 % (21.3-54.2); Mean Corpuscular HGB Conc 31.4 GM/DL (32-36); Mean Corpuscular Volume 88.1 FL (87-102); Mean Platelet Volume 13.3 FL (9.6-12.0); Monocytes % 7.4 % (1.7-12.7); Neutrophils % 67.1 % (38.7-73.9); Platelet Count 145 T/CUMM (130-400); Red Blood Count 2.78 MC/CUMM (3.8-5.5); Red Cell Distribution Width 15.9 % (9.3-17.3); White Blood Count 8.1 T/CUMM (4-12)
[2021-10-15 05:51] LABS: Calcium 7.7 MG/DL (8.5-10.1); Osmolality,Calculated 291.5 MOS/KG (273-304); Potassium 3.9 MMOL/L (3.5-5.1)
[2021-10-15 05:57] LABS: % Iron Saturation 10.5 % (18-50); Folate 6.97 NG/ML (5.38-24.0); Vitamin B12 357 PG/ML (211-911)
[2021-10-15] MEDS: SODIUM BICARB INJ 50 MEQ in DEXTROSE 5% NACL 0.45% 1,000 ML IV SCH ×2 (06:09→07:14)
[2021-10-15 07:52] LABS: Sedimentation Rate-Westergren 118 MM/HR (0-30)
[2021-10-15 09:01] LABS: Hemoglobin A1 (Alkaline) 97.9 % (96.5-98.5); Hemoglobin A2 (Alkaline) 2.1 % (1.5-3.5)
[2021-10-15] MEDS: DAPAGLIFLOZIN 5 MG TABLET PO SCH (09:24)
[2021-10-15] MEDS: PANTOPRAZOLE 40 MG TABLET PO SCH (09:24)
[2021-10-15] MEDS: carvediloL 12.5 MG TABLET PO SCH ×2 (09:24→21:22)
[2021-10-15] MEDS: POTASSIUM BICARB EFFERVESCENT 20 MEQ TAB.EFF PO SCH ×2 (09:24→21:22)
[2021-10-15] MEDS: levETIRAcetam 500 MG TABLET PO SCH ×2 (09:24→21:22)
[2021-10-15] MEDS: ASPIRIN EC 325 MG TABLET PO SCH (09:24)
[2021-10-15] MEDS: IRON (CARBONYL)/VIT C/B12/FA TABLET PO SCH (09:24)
[2021-10-15] MEDS: INSULIN LISPRO 100 UNIT/ML SUBCUT SCH ×4 (09:25→21:22)
[2021-10-15] MEDS: HEPARIN 5,000 UNIT/1 ML VIAL SUBCUT SCH ×2 (09:26→21:22)
[2021-10-15] MEDS ORDERED: ERGOCALCIFEROL 50,000 UNIT CAPSULE PO ONE (10:41)
[2021-10-15] MEDS ORDERED: FUROSEMIDE 40 MG/4 ML VIAL IV ONE (12:30)
[2021-10-15] MEDS: CLINDAMYCIN INJ 600 MG/50 ML PREMIX IV SCH ×2 (12:42→21:23)
[2021-10-15] MEDS ORDERED: INSULIN GLARGINE 100 UNIT/ML SUBCUT SCH (21:00)
[2021-10-15] MEDS: ATORVASTATIN 80 MG TABLET PO SCH (21:22)
[2021-10-16] MEDS: ALBUTEROL/IPRATROPIUM 3 ML NEB RESP TX SCH ×4 (00:23→19:35)
[2021-10-16 05:02] LABS: Basophils % 0.2 % (0.0-0.8); Eosinophils # 0.6 10*3/uL (0.0-0.87); Eosinophils % 7.7 % (0.00-10.9); Hematocrit 24.3 VOL% (35.7-47.0); Hemoglobin 7.6 GM/DL (12.0-16.0); Immature Granulocytes % 0.2 %; Immature Granulocytes Absolute 0.02 #; Lymphocytes # 1.2 10*3/uL (1.4-4.0); Lymphocytes % 14.3 % (21.3-54.2); Mean Corpuscular HGB Conc 31.3 GM/DL (32-36); Mean Corpuscular Volume 88.7 FL (87-102); Mean Platelet Volume 13.2 FL (9.6-12.0); Monocytes % 8.3 % (1.7-12.7); Neutrophils % 69.3 % (38.7-73.9); Platelet Count 150 T/CUMM (130-400); Red Blood Count 2.74 MC/CUMM (3.8-5.5); Red Cell Distribution Width 15.9 % (9.3-17.3)
[2021-10-16] MEDS: CLINDAMYCIN INJ 600 MG/50 ML PREMIX IV SCH ×3 (05:19→21:48)
[2021-10-16 05:28] LABS: Hypochromia 1+; Microcytosis Slight; Platelet Estimate Normal
[2021-10-16 05:29] LABS: Calcium 7.7 MG/DL (8.5-10.1); Osmolality,Calculated 290.8 MOS/KG (273-304); Potassium 4.5 MMOL/L (3.5-5.1)
[2021-10-16] MEDS: ONDANSETRON 4 MG/2 ML VIAL IV PRN ×2 (07:15→11:52)
[2021-10-16] MEDS: POTASSIUM BICARB EFFERVESCENT 20 MEQ TAB.EFF PO SCH (08:10)
[2021-10-16] MEDS: INSULIN LISPRO 100 UNIT/ML SUBCUT SCH ×5 (08:36→21:50)
[2021-10-16] MEDS: PANTOPRAZOLE 40 MG TABLET PO SCH (08:37)
[2021-10-16] MEDS: ASPIRIN EC 325 MG TABLET PO SCH (08:37)
[2021-10-16] MEDS: CHOLECALCIFEROL 1,000 UNIT TABLET PO SCH (08:37)
[2021-10-16] MEDS: carvediloL 12.5 MG TABLET PO SCH ×2 (08:37→21:50)
[2021-10-16] MEDS: levETIRAcetam 500 MG TABLET PO SCH ×2 (08:37→21:50)
[2021-10-16] MEDS: IRON (CARBONYL)/VIT C/B12/FA TABLET PO SCH (08:37)
[2021-10-16] MEDS: DAPAGLIFLOZIN 5 MG TABLET PO SCH (08:37)
[2021-10-16] MEDS: PIPERACILLIN/TAZOBACTAM 3,375 MG in SODIUM CHLORIDE 0.9% 100 ML IV SCH ×2 (08:40→22:48)
[2021-10-16] MEDS ORDERED: FUROSEMIDE 40 MG/4 ML VIAL IV ONE (09:15)
[2021-10-16] MEDS: HEPARIN 5,000 UNIT/1 ML VIAL SUBCUT SCH ×2 (09:48→21:51)
[2021-10-16 15:11] LABS: Soluble Transf Receptor (sTfR) 2.1 mg/L (1.8 - 4.6)
[2021-10-16] MEDS ORDERED: INSULIN GLARGINE 100 UNIT/ML SUBCUT SCH (21:00)
[2021-10-16] MEDS: ATORVASTATIN 80 MG TABLET PO SCH (21:50)
[2021-10-17] MEDS: ALBUTEROL/IPRATROPIUM 3 ML NEB RESP TX SCH ×4 (01:05→20:28)
[2021-10-17] MEDS: CLINDAMYCIN INJ 600 MG/50 ML PREMIX IV SCH ×3 (04:20→22:01)
[2021-10-17 04:48] LABS: Basophils % 0.4 % (0.0-0.8); Eosinophils # 0.8 10*3/uL (0.0-0.87); Eosinophils % 9.8 % (0.00-10.9); Hemoglobin 7.6 GM/DL (12.0-16.0); Immature Granulocytes % 0.5 %; Immature Granulocytes Absolute 0.04 #; Lymphocytes # 1.6 10*3/uL (1.4-4.0); Lymphocytes % 20.6 % (21.3-54.2); Mean Corpuscular HGB Conc 30.4 GM/DL (32-36); Mean Corpuscular Volume 90.3 FL (87-102); Mean Platelet Volume 13.5 FL (9.6-12.0); Monocytes % 9.5 % (1.7-12.7); Neutrophils % 59.2 % (38.7-73.9); Red Blood Count 2.77 MC/CUMM (3.8-5.5); Red Cell Distribution Width 16.2 % (9.3-17.3); White Blood Count 7.9 T/CUMM (4-12)
[2021-10-17 04:57] LABS: Platelet Count 186 T/CUMM (130-400)
[2021-10-17 05:14] LABS: Calcium 8.1 MG/DL (8.5-10.1); Osmolality,Calculated 287.3 MOS/KG (273-304); Potassium 4.2 MMOL/L (3.5-5.1)
[2021-10-17] MEDS: HEPARIN 5,000 UNIT/1 ML VIAL SUBCUT SCH ×2 (09:12→22:01)
[2021-10-17] MEDS: ASPIRIN EC 325 MG TABLET PO SCH (09:13)
[2021-10-17] MEDS: IRON (CARBONYL)/VIT C/B12/FA TABLET PO SCH (09:13)
[2021-10-17] MEDS: levETIRAcetam 500 MG TABLET PO SCH ×2 (09:13→22:02)
[2021-10-17] MEDS: PANTOPRAZOLE 40 MG TABLET PO SCH (09:13)
[2021-10-17] MEDS: DAPAGLIFLOZIN 10 MG TABLET PO SCH (09:14)
[2021-10-17] MEDS: carvediloL 12.5 MG TABLET PO SCH ×2 (09:14→22:01)
[2021-10-17] MEDS: CHOLECALCIFEROL 1,000 UNIT TABLET PO SCH (09:14)
[2021-10-17] MEDS: PIPERACILLIN/TAZOBACTAM 3,375 MG in SODIUM CHLORIDE 0.9% 100 ML IV SCH (09:19)
[2021-10-17] MEDS: INSULIN LISPRO 100 UNIT/ML SUBCUT SCH ×4 (09:33→22:00)
[2021-10-17] MEDS: FUROSEMIDE 40 MG TABLET PO SCH (09:37)
[2021-10-17] MEDS: DOXYCYCLINE HYCLATE 100 MG CAPSULE PO SCH ×2 (09:37→22:05)
[2021-10-17] MEDS: MEROPENEM 500 MG in SODIUM CHLORIDE 0.9% 100 ML IV SCH ×2 (09:39→17:42)
[2021-10-17] MEDS: guaiFENesin/DM ER 600-30 MG TABLET PO PRN (16:25)
[2021-10-17] MEDS: ONDANSETRON 4 MG/2 ML VIAL IV PRN (17:40)
[2021-10-17] MEDS: MULTIVITAMIN (BEROCCA) TABLET PO SCH (17:40)
[2021-10-17] MEDS: INSULIN GLARGINE 100 UNIT/ML SUBCUT SCH (22:01)
[2021-10-17] MEDS: ATORVASTATIN 80 MG TABLET PO SCH (22:01)
[2021-10-18] MEDS: MEROPENEM 500 MG in SODIUM CHLORIDE 0.9% 100 ML IV SCH ×3 (01:30→17:40)
[2021-10-18] MEDS: ALBUTEROL/IPRATROPIUM 3 ML NEB RESP TX SCH ×4 (01:48→19:23)
[2021-10-18] MEDS: ZALEPLON 5 MG CAPSULE PO PRN (02:52)
[2021-10-18] MEDS: CLINDAMYCIN INJ 600 MG/50 ML PREMIX IV SCH ×2 (05:17→13:32)
[2021-10-18] MEDS: ASPIRIN EC 325 MG TABLET PO SCH (08:41)
[2021-10-18] MEDS: guaiFENesin/DM ER 600-30 MG TABLET PO PRN (08:41)
[2021-10-18] MEDS: FUROSEMIDE 40 MG TABLET PO SCH (08:41)
[2021-10-18] MEDS: DOXYCYCLINE HYCLATE 100 MG CAPSULE PO SCH ×2 (08:42→22:12)
[2021-10-18] MEDS: carvediloL 12.5 MG TABLET PO SCH ×2 (08:42→22:12)
[2021-10-18] MEDS: DAPAGLIFLOZIN 10 MG TABLET PO SCH (08:42)
[2021-10-18] MEDS: IRON (CARBONYL)/VIT C/B12/FA TABLET PO SCH (08:42)
[2021-10-18] MEDS: PANTOPRAZOLE 40 MG TABLET PO SCH (08:42)
[2021-10-18] MEDS: MULTIVITAMIN (BEROCCA) TABLET PO SCH (08:42)
[2021-10-18] MEDS: CHOLECALCIFEROL 1,000 UNIT TABLET PO SCH (08:42)
[2021-10-18] MEDS: levETIRAcetam 500 MG TABLET PO SCH ×2 (08:43→22:12)
[2021-10-18] MEDS: HEPARIN 5,000 UNIT/1 ML VIAL SUBCUT SCH ×2 (10:08→22:12)
[2021-10-18] MEDS: ONDANSETRON 4 MG/2 ML VIAL IV PRN ×2 (11:28→17:07)
[2021-10-18] MEDS: INSULIN LISPRO 100 UNIT/ML SUBCUT SCH ×6 (11:45→22:13)
[2021-10-18] MEDS: ATORVASTATIN 80 MG TABLET PO SCH (22:12)
[2021-10-18] MEDS: INSULIN GLARGINE 100 UNIT/ML SUBCUT SCH (22:13)
[2021-10-19] MEDS: ALBUTEROL/IPRATROPIUM 3 ML NEB RESP TX SCH ×3 (00:07→13:12)
[2021-10-19] MEDS: MEROPENEM 500 MG in SODIUM CHLORIDE 0.9% 100 ML IV SCH ×2 (01:56→10:07)
[2021-10-19 05:45] LABS: Basophils % 0.3 % (0.0-0.8); Eosinophils # 0.7 10*3/uL (0.0-0.87); Eosinophils % 7.6 % (0.00-10.9); Hematocrit 25.6 VOL% (35.7-47.0); Hemoglobin 7.7 GM/DL (12.0-16.0); Immature Granulocytes % 2.3 %; Immature Granulocytes Absolute 0.22 #; Lymphocytes % 20.4 % (21.3-54.2); Mean Corpuscular HGB Conc 30.1 GM/DL (32-36); Mean Corpuscular Volume 91.1 FL (87-102); Mean Platelet Volume 12.5 FL (9.6-12.0); Monocytes % 13.8 % (1.7-12.7); NRBC # 0.12 10*3/uL; Neutrophils % 55.6 % (38.7-73.9); Platelet Count 274 T/CUMM (130-400); Red Blood Count 2.81 MC/CUMM (3.8-5.5); Red Cell Distribution Width 16.7 % (9.3-17.3); White Blood Count 9.7 T/CUMM (4-12)
[2021-10-19 06:05] LABS: Calcium 8.7 MG/DL (8.5-10.1); Osmolality,Calculated 295.4 MOS/KG (273-304); Potassium 4.8 MMOL/L (3.5-5.1)
[2021-10-19] MEDS: carvediloL 12.5 MG TABLET PO SCH (08:34)
[2021-10-19] MEDS: CHOLECALCIFEROL 1,000 UNIT TABLET PO SCH (08:34)
[2021-10-19] MEDS: FUROSEMIDE 40 MG TABLET PO SCH (08:34)
[2021-10-19] MEDS: DAPAGLIFLOZIN 10 MG TABLET PO SCH (08:34)
[2021-10-19] MEDS: DOXYCYCLINE HYCLATE 100 MG CAPSULE PO SCH (08:34)
[2021-10-19] MEDS: PANTOPRAZOLE 40 MG TABLET PO SCH (08:34)
[2021-10-19] MEDS: ASPIRIN EC 325 MG TABLET PO SCH (08:34)
[2021-10-19] MEDS: levETIRAcetam 500 MG TABLET PO SCH (08:34)
[2021-10-19] MEDS: INSULIN LISPRO 100 UNIT/ML SUBCUT SCH ×4 (08:34→12:27)
[2021-10-19] MEDS: MULTIVITAMIN (BEROCCA) TABLET PO SCH (08:34)
[2021-10-19] MEDS: IRON (CARBONYL)/VIT C/B12/FA TABLET PO SCH (08:34)
[2021-10-19] MEDS: HEPARIN 5,000 UNIT/1 ML VIAL SUBCUT SCH (10:07)
[2021-10-19 12:23] VITALS: BP 130/57
== END 2021-10-19 14:22 | disposition home health service (06) | DRG 64 ==
LOC: EDUNIT# → EDBD → N.ED 17:20 → N.EDINP 22:00 → SUATTDRO 22:00 → N.TELEN 10-11 03:26
PROVIDERS: ADMIT Internal Medicine; ATTEND Emergency Medicine